=== PATIENT | male | born 1970 | race Caucasian/White ===

== ENCOUNTER 2017-11-22 15:24 | Emergency (ER) | payer BC, SELFPAY ==
[2017-11-22 15:25] VITALS: BP 142/83; PULSE 79; RESP 14; TEMP 37; O2SAT 96; BMI 28.5
--- NOTE | 2017-11-22 15:55 | ED.DCSUM_ITS ---
- ER Visit Summary Date of Service: 11/22/17 Chief Complaint: Left eye pain after trauma History of Present Illness: The patient is a 47 M who presents for left eye pain after accidentally poking himself in the eye with his thumb. Patient was working in the garage and his hand suddenly slipped off of something he was pulling on, causing him to poke himself in the left eye with his thumb. He does not wear contacts or glasses. He has had worsening pain since the incident. He denies any visual changes or bleeding. He sees [facility] but was unable to wait until Friday when they would be open again. Physical Examination: Patient well-nourished well-developed sitting in bed with the lights off, left eye is shut. Patient has diffuse conjunctival injection of the left eye. Pupils are equal round reactive to light. Extraocular movement is intact without pain. Visual acuity grossly intact. Fluorescein stain shows a moderate sized corneal abrasion. No Hari sign. Remainder of exam unremarkable. Test Results: [] Emergency Department Course and Treatment: Patient has a corneal abrasion in the left eye. No indication of globe rupture. Patient had instant improvement of his pain with the tetracaine drops. The majority of the tetracaine was squeezed out of the drop bottle, leaving only a few drops in the bottom the patient was allowed to take home for severe pain. He was given erythromycin ointment to use 4 times a day for 5 days. He is going to follow-up on Friday with his eye doctor for reevaluation. Patient was discharged home in improved condition. Treatment Plan: [] Disposition: [] Impression: Left corneal abrasion This note was generated with [employer] dictation software. It may contain incorrect words, spelling, and punctuation that were not noted in review of the chart prior to signing ED Disposition - Plan for ED Patient: Chief Complaint: Eye Problem Referrals: North Cabral MD [Primary Care Provider] -
--- NOTE | 2017-11-22 15:57 | DCINST.ED_ITS ---
ED Disposition - Plan for ED Patient: Disposition: Home or Assisted Living Chief Complaint: Eye Problem Instructions: ED Eye Injury Corneal Abrasion Referrals: North Cabral MD [Primary Care Provider] - Additional Instructions: Please see your eye doctor on Friday for another evaluation of your left corneal abrasion. Use the antibiotic ointment as prescribed. You may use over- the-counter pain medication as needed for pain, and you may use the tetracaine drops for severe pain. Do not use them for more than 2 days. Please return to the emergency department immediately if you have any worsening of your condition or any new, concerning symptoms.
[2017-11-22] MEDS: Erythromycin Base 1 OPTH.TUBE 1 APPLIC LEFT EYE (16:09)
== END 2017-11-22 16:20 | disposition home or self-care (01) ==
PROVIDERS: Emergency Provider Emergency Medicine
DX: S05.02XA Injury of conjunctiva and corneal abrasion without foreign body, left eye, initial encounter (principal); X58.XXXA Exposure to other specified factors, initial encounter; Y93.9 Activity, unspecified; Y92.59 Other trade areas as the place of occurrence of the external cause; Y99.9 Unspecified external cause status
CPT/HCPCS: 99282

== ENCOUNTER 2024-12-09 14:23 | Emergency (ER) | payer BC, SELFPAY ==
[2024-12-09] VITALS (8 sets, daily range): BP systolic 121–181; BP diastolic 63–90; PULSE 63–83; RESP 14–17; TEMP 36.4–36.6; O2SAT 97–99; BMI 27.1
--- NOTE | 2024-12-09 14:47 | EKG12_ITS ---
Test Reason : CP Blood Pressure : */* mmHG Vent. Rate : 70 BPM Atrial Rate : 70 BPM P-R Int : 152 ms QRS Dur : 98 ms QT Int : 400 ms P-R-T Axes : 23 59 57 degrees QTcB Int : 432 ms Normal sinus rhythm Normal ECG Confirmed by SIENA LONGORIA, MIL ([id number]), purchasing expeditor JOHN MILLIGAN ([id number]) on 12/10/2024 8:05:57 AM Referred By: Confirmed By: MIL WREN MD
--- NOTE | 2024-12-09 14:50 | RAD_ITS ---
EXAM: CHEST 1 VIEW (PORTABLE) CLINICAL HISTORY: CHEST PAIN COMPARISON: None. TECHNIQUE: PA and lateral views of the chest obtained. FINDINGS: The cardiac silhouette is not enlarged. No pulmonary parenchymal consolidative opacities. No pneumothorax or significant pleural effusion. No acute osseous abnormality is identified. RAD/Chest 1 View (Portable) IMPRESSION: No radiographic evidence of acute cardiopulmonary disease. Negative examinatio n Reading Location: [id number]
[2024-12-09 15:07] LABS: Absolute Lymphocyte Count 1.87 X10^3/uL (0.83-4.51); Absolute Neutrophil Count 4.8 X10^3/uL (2.0-7.7); Basophil# 0.06 X10^3/uL; Basophil% 0.8 % (0-1); Eosinophil# 0.11 X10^3/uL; Eosinophils% 1.4 % (0-5); Hematocrit 41.3 % (40-54); Hemoglobin 14.7 g/dL (13.0-16.5); Lymphocyte # 1.87 X10^3/ul (0.83-4.51); Lymphocyte % 24.3 % (19-41); Mean Corp Hgb Conc 35.6 g/dL (32-36); Mean Corpuscular Hgb 28.4 pg (27.0-32.0); Mean Corpuscular Volume 79.7 fL (80-94); Mean Platelet Vol. 11.7 fl (6.2-12.0); Monocyte# 0.83 X10^3/uL; Monocyte% 10.8 % (0-10); NRBC Flagged by Analyzer 0 % (0-5); Neutrophil # 4.81 X10^3/uL (2.7-7.7); Neutrophil % 62.4 % (47-70); Platelet Count 198 K/mm3 (150-450); RBC Distribution Width CV 12.9 % (11.6-14.6); RBC Distribution Width SD 36.2 fl (35.1-43.9); Red Blood Count 5.18 M/mm3 (4.6-6.2); White Blood Count 7.7 K/mm3 (4.4-11.0)
--- NOTE | 2024-12-09 15:33 | ED.VIS.CHEST ---
HPI History of Present Illness Chief Complaint: Chest Pain Informant: patient Onset/Context/Timing Onset: Yesterday Activity at onset: sudden and light activity Timing: Continuous Quality: Positive for Sharp Worsened By: - (Sitting, laying on his left side) Relieved By: Nothing Associated Symptoms: Negative for Nausea, Vomiting, Diaphoresis, Dyspnea, Cough, Fever, Lightheadedness, Acid Reflux or Palpitations Narrative Narrative: Patient presents with chest pain that began yesterday. Patient states that has been constant. Patient states he was at work when his pain started. Patient states he does not do exertional work. Patient states he was walking when it started. Patient describes the pain as sharp. Patient states it is over the left parasternal and left upper chest area. Patient states that it is worse when he is sitting up and when he turns onto his left side. Patient states nothing seems to help with it. Patient denies any nausea or vomiting. Patient denies any shortness of breath or cough. Patient denies any diaphoresis. Patient denies any palpitations. CVD Risk Factors: Positive for Family History 1' </=55; Negative for Hypertension, Diabetes, Hypercholesterolemia or Smoking PE Risk Factors: Negative for Recent Travel/Surgery, Recent Immobilization, Prior DVT or PE, Cancer or OCP + Smoking + >/=35 PFSH PFSH Medical History no medical history no medical history Home Medications ?Medication ?Instructions ?Recorded ?Last Taken ?Type NK 11/22/17 Unknown History Allergy/AdvReac Type Severity Reaction Status Date / Time No Known Allergies Allergy Verified 12/09/24 14:23 Family History (Updated 12/09/24 @ 14:50 by Kiki Shepard) Grandfather Myocardial infarction Surgical History (Updated 12/09/24 @ 15:[address] Brandon Matias DO) Hx of knee surgery Surgical History no surgical history Social History Smoking Status: Never smoker ROS ROS ED Constitutional Constitutional ED: Denies chills or fever(s) Eyes Eyes: Denies blurry vision or change in vision ENT ENT ED: Denies rhinorrhea or sore throat Cardiovascular Cardiovascular: Reports chest pain; Denies palpitations Respiratory/Chest Respiratory/Chest: Denies cough or dyspnea Gastrointestinal Gastrointestinal: Denies nausea or vomiting Genitourinary Genitourinary ED: Denies dysuria or hematuria Musculoskeletal Musculoskeletal: Denies back pain or neck pain Integumentary Denies abscess or rash Neurologic Neurologic: Denies headache(s) or weakness Allergic/Immunologic Allergic/Immunologic ED: Denies mouth swelling or urticaria EXAM Physical Exam Const Vital Signs: 12/09/24 14:24 12/09/24 14:49 12/09/24 15:23 Temperature 97.6 F L Temperature Source Temporal Pulse Rate 83 70 Respiratory Rate 15 16 Blood Pressure 181/87 H 128/78 H Blood Pressure Mean 118 94 Pulse Ox 99 99 98 Oxygen Delivery Method Room Air Room Air 12/09/24 15:59 12/09/24 16:00 12/09/24 17:00 Temperature Temperature Source Pulse Rate 80 78 63 Respiratory Rate 17 17 16 Blood Pressure 122/63 H 122/63 H 121/75 H Blood Pressure Mean 82 82 90 Pulse Ox 98 98 98 Oxygen Delivery Method 12/09/24 18:00 Temperature Temperature Source Pulse Rate 68 Respiratory Rate 14 Blood Pressure 127/87 H Blood Pressure Mean 100 Pulse Ox 97 Oxygen Delivery Method Positive well nourished and well developed General Appearance ED: well developed and NAD HEENT Reports moist mucous membranes HEENT Narrative: BMI is 27.1. Neck supple and no JVD Chest Wall inspection of chest normal and palpation of chest normal Resp normal respiratory effort and clear to auscultation bilaterally Cardio regular rate and regular rhythm GI soft to palpation, non-tender and non-distended Extremity normal to inspection General Extremety ED: Negative for edema or tenderness General Extremity: Negative for edema Neuro oriented x3, CN's II-XII intact bilaterally and no sensory deficits noted Sensorium / Orientation: awake and alert Motor Exam: strength 5/5 throughout Psych mental status grossly normal Heart Score History: Slightly/Non-Suspicious ECG: Normal Age: >45 - <65 years Risk Factors: 1 or 2 Risk Factors Troponin: </= Normal Limit Score: 2 MDM MDM MDM Narrative Medical decision making narrative: Differential diagnose includes cardiac dysrhythmia, cardiac ischemia, pneumonia, bronchitis, musculoskeletal pain, electrolyte abnormality, and anxiety. EKG will be obtained to assess for cardiac dysrhythmia and cardiac ischemia. Chest x-ray will be obtained to assess for pneumonia and bronchitis. CBC will be obtained to assess for leukocytosis and anemia. Basic metabolic profile will be obtained to assess for electrolyte abnormality and renal function. High-sensitivity troponin will be obtained to assess for cardiac ischemia. 2-hour repeat high-sensitivity troponin will be obtained to assess for ongoing cardiac ischemia. Lab Data Attestation: I reviewed the patient's lab results. Lab results narrative: CBC was reviewed and was within normal limits. Basic metabolic profile was reviewed and was within normal limits. Initial high-sensitivity troponin was reviewed and was normal at 6. 2-hour repeat high-sensitivity troponin was reviewed and was normal at 6. Labs: Laboratory Results - last 24 hr 12/09/24 12/09/24 14:37 17:10 WBC 7.7 RBC 5.18 Hgb 14.7 Hct 41.3 MCV 79.7 L MCH 28.4 MCHC 35.6 RDW Std Deviation 36.2 RDW Coeff of Jeri 12.9 Plt Count 198 MPV 11.7 Immature Gran % (Auto) 0.300 Neut % (Auto) 62.4 Lymph % (Auto) 24.3 [place] % (Auto) 10.8 H Eos % (Auto) 1.4 Baso % (Auto) 0.8 Absolute Neuts (auto) 4.8 Absolute Lymphs (auto) 1.87 Nucleated RBC % 0 Sodium 138 Potassium 3.7 Chloride 101 Carbon Dioxide 25.4 Anion Gap 12 BUN 17 Creatinine 1.00 Estim Creat Clear Calc 93.77 Est GFR (MDRD) Non-Af 90 BUN/Creatinine Ratio 16.9 Glucose 109 H Calcium 9.2 Troponin T High Sens 6 Troponin T Hi Sens 2 Hr 6 Radiography Chest X-Ray - ED: 1 View, Read by ED Physician, Read by Radiologist and No Acute Disease Diagnostic Testing: Clinical Impression(s) from Imaging Studies Chest X-Ray 12/09/24 14:50 IMPRESSION: No radiographic evidence of acute cardiopulmonary disease. Negative examination Reading Location: [address] Portable 1 view chest x-ray was obtained. On my independent interpretation, lung goodwin are clear. There is normal cardiac silhouette. Bony thorax is normal. There is no acute process noted. Radiologist also interpreted the x-ray and agrees. EKG Initial EKG: Attestation: I personally reviewed and interpreted this EKG as follows: Interpretation: Sinus Rhythm (70) and No Acute Injury Pattern Comments: EKG was obtained. On my independent interpretation, it showed a normal sinus rhythm with a rate of 70. HI interval, QRS interval, and QTc intervals were all normal. Howe was normal. There are no acute ST or T wave changes. Prior EKG tracings: available for review Prior: Unchanged (Compared to EKG during stress test on 01/06/2017.) Treatment and Re-Evaluation :: Patient was given aspirin. Patient was advised of his findings. Patient has a HEART score of 2. Patient was advised that this is low risk for acute cardiac event. Patient was instructed to follow-up with his primary care physician in 5 to 7 days for further evaluation. Patient understood and was agreeable with the plan. All questions were answered. Discharge Plan Triage Chief Complaint: Chest Pain ED Provider: Brandon Matias Dx/Rx/DC Orders Clinical Impression: Chest pain, Elevated blood pressure reading Instructions: ED Chest Pain, Uncertain Cause Prescriptions: No Action NK Primary Care Provider: Care Physician,No Primary Referrals: Toño Lopez MD [Med Staff - Active Staff] - 5-7 Days Care Physician,No Primary [Primary Care Provider] - Print Language: [place] Disposition Disposition: Home, Self Care
[2024-12-09] MEDS: Aspirin 81 MG TAB.CHEW 324 MG PO (15:44)
[2024-12-09 16:03] LABS: Anion Gap 12 (5-15); BUN 17 mg/dL (4-19); BUN/Creat Ratio 16.9 RATIO (10-20); Calcium,Total 9.2 mg/dL (7.6-11.0); Carbon Dioxide 25.4 mmol/L (21.0-32.0); Chloride 101 mmol/L (98-108); EST Glomerular Filtration Rate 90 (>60); Estimated Creatinine Clearance 93.77 ml/min (50-250); Glucose 109 mg/dL (70-99); Potassium 3.7 mmol/L (3.3-5.1); Sodium Level 138 mmol/L (133-145); Troponin T High Sensitivity 6 ng/L (<=22)
[2024-12-09 17:34] LABS: Troponin T High Sens 2 HR 6 ng/L (<=22)
== END 2024-12-09 18:22 | disposition home or self-care (01) ==
PROVIDERS: Emergency Provider Emergency Medicine; Visit Provider Emergency Medicine
DX: R07.9 Chest pain, unspecified (principal); R03.0 Elevated blood-pressure reading, without diagnosis of hypertension
CPT/HCPCS: 71045; 80048; 84484; 85025; 93005; 99283; A4216